=== PATIENT | male | born 1970 | race African-American/Black ===

== ENCOUNTER 2018-01-11 06:28 | Day surgery (SDC) | payer BC ==
[2018-01-09 13:31] VITALS: BMI 31.0
[2018-01-11] MEDS ORDERED: ONDANSETRON 4 MG/2 ML VIAL ONE (08:14)
[2018-01-11] MEDS ORDERED: LIDOCAINE HCL/PF 2% SDV 5ML VIAL ONE (08:14)
[2018-01-11] MEDS ORDERED: MIDAZOLAM HCL 2 MG/2 ML SINGLE DOSE VIAL ONE (08:14)
[2018-01-11] MEDS ORDERED: PROPOFOL 20 ML ONE (08:14)
[2018-01-11] MEDS ORDERED: DEXAMETHASONE SOD PHOSPHATE 4 MG/1 ML VIAL ONE (08:14)
[2018-01-11] MEDS ORDERED: BUPIVACAINE HCL/PF 2.5 MG/ML - 30 ML VIAL IJ ONE (08:59)
[2018-01-11] MEDS ORDERED: BUPIVACAINE HCL/PF 0.25% (2.5MG/ML) 10 ML VIAL IJ ONE ×2 (09:40→09:54)
[2018-01-11] MEDS ORDERED: oxyCODONE HCL 5 MG TABLET PO PRN ×2 (09:40)
[2018-01-11] MEDS ORDERED: ONDANSETRON 4 MG/2 ML VIAL IVPUSH PRN (09:40)
[2018-01-11] MEDS ORDERED: LACTATED RINGERS SOLUTION 1,000 ML IV SCH (09:45)
[2018-01-11] MEDS ORDERED: ACETAMINOPHEN 325 MG TABLET (FP) ONE (10:49)
[2018-01-11] MEDS ORDERED: ACETAMINOPHEN 325 MG TABLET (FP) PO PRN (11:01)
--- NOTE | 2018-01-11 11:36 | OP ---
DATE OF OPERATION: 01/11/2018 PREOPERATIVE DIAGNOSES: 1. Right knee medial and lateral meniscal tear. 2. Right knee cartilage injury. 3. Right knee synovitis. POSTOPERATIVE DIAGNOSES: 1. Right knee medial and lateral meniscal tear. 2. Right knee cartilage injury. 3. Right knee synovitis. PROCEDURES: 1. Right knee arthroscopy with partial meniscectomy, medial and lateral meniscus; CPT code 60046 2. Right knee arthroscopy with chondroplasty and abrasion-plasty; CPT code 45949 3. Right knee arthroscopy with synovectomy; CPT code 34111 SURGEON: Massimo Calderon MD STAVE BOLT EQUALIZER: LATONIA Emmanuel FINDINGS: 1. Previous ACL reconstruction with partial meniscectomy, medial and lateral meniscus. 2. Medial meniscus posterior horn tear/minor. 3. Lateral meniscus posterior one-third tear. Previous partial meniscectomy in the area, now total posterior portion. 4. Synovitis patellofemoral medial, lateral and notch area, large medial plica. 5. Minor cartilage changes, medial joint line. 6. ACL and PCL intact. 7. joint line. 8. Posterolateral tibial plateau grade 3-4 changes. 9. trochlea. PROCEDURE: Informed consent was obtained. The patient came to the operating room, where the lower extremity was prepped and draped in a sterile fashion. A tourniquet was placed on the upper thigh, but not inflated. Using standard arthroscopic technique, a lateral incision and portal was made to allow for introduction of the camera into the suprapatellar bursa. This was then taken to the medial joint line, where under direct visualization, a medial incision and portal was made. Excessive synovium noted in the medial, lateral and patellofemoral and notch area was removed by an up-biter, shaver and Bovie cautery. This was found to bring in inflammatory tissue into the joint surface, a source of pain and dysfunction. Probing of the medial and lateral meniscus found tears, as described in the findings. These were removed with the up-biter and shaver and taken back to a stable rim. Grade 2 to 3 degenerative changes were treated with a chondroplasty, removing all flaking surfaces with low-setting Bovie along the periphery to prevent further flaking. Grade 4 changes, as noted, were treated with an abrasoplasty, creating a bleeding surface at the bone/cartilage interface. Aggressive debridement with shaver/natividad created bleeding surface. Microfracture also done when indicated in findings. All areas of the knee were once again re-examined. The knee was then drained and a single suture was placed in all portals. A sterile dressing was placed and the patient was transferred to the recovery room without complication. MASSIMO CALDERON M.D. [id number]
[2018-01-11 11:43] VITALS: TEMP 97.9
[2018-01-11 11:49] VITALS: BP 110/73; PULSE 61
--- NOTE | 2018-01-18 15:21 | PATH ---
Surgical Pathology Report Patient Name: WALI CARSON Med. Rec. #: [id number] /Age/Gender: 1970 (Age: 47) / M Account: [id number] Location: [facility] Taken: 01/11/2018 Received: 01/11/2018 Reported: 01/18/2018 Physicians: Wali Bell M.D. Specimen(s) Received RIGHT KNEE SHAVINGS Clinical History Right knee internal derangement Final Diagnosis KNEE, RIGHT, ARTHROSCOPIC SHAVINGS: FIBROSYNOVIAL TISSUE AND SCANT CARTILAGE. Electronically Signed Adwoa Francis M.D. Gross Description Received in formalin, labeled "right knee shavings," is a 3.7 x 3.5 x 0.4 cm. aggregate of gannon-yellow soft tissue fragments. A accounts payable representative portion is submitted in one cassette. /01/11/2018 saudi01/11/2018
== END 2018-01-11 11:50 | disposition home or self-care (01) ==
LOC: FASU 06:28
PROVIDERS: ATTEND Orthopaedic Surgery
PROC: 0SBC4ZZ Excision of Right Knee Joint, Percutaneous Endoscopic Approach (ICD-10-PCS; 2018-01-11)
PROC: 0SBC4ZZ Excision of Right Knee Joint, Percutaneous Endoscopic Approach (ICD-10-PCS; 2018-01-11)
PROC: 0SBC4ZZ Excision of Right Knee Joint, Percutaneous Endoscopic Approach (ICD-10-PCS; principal; 2018-01-11 08:30)
DX: S83.241A Other tear of medial meniscus, current injury, right knee, initial encounter (principal); S83.281A Other tear of lateral meniscus, current injury, right knee, initial encounter; S83.8X1A Sprain of other specified parts of right knee, initial encounter; M65.861 Other synovitis and tenosynovitis, right lower leg; X58.XXXA Exposure to other specified factors, initial encounter; Y93.89 Activity, other specified; Y92.89 Other specified places as the place of occurrence of the external cause
CPT/HCPCS: 88304-TC; 94760